=== PATIENT | female | born 1965 | race Caucasian/White ===

== ENCOUNTER 2017-01-14 05:33 | Emergency (ER) | payer MEDICARE ==
[~2017-01-14 05:33] MED LIST: ALDENDRONATE PO; ASPIRIN81 MG PO; COREG 25MG TAB25 MG PO; CYMBALTA60 MG PO; DEXILANT60 MG PO; HYDRALAZINE HCL25 MG PO; METOPROLOL TART50 MG PO; NEURONTIN 400400 MG PO; TRICOR 145 MG145 MG PO
[2017-01-14 07:16] LABS: HEMOGLOBIN 11.2 gm/dl (12.3-15.3); RED BLOOD COUNT 3.72 M/UL (4.00-5.10); WHITE BLOOD COUNT 7.8 K/UL (4.5-11.0)
== END 2017-01-14 12:55 | disposition home or self-care (01) ==
LOC: ER1 05:33
PROVIDERS: Student in an Organized Health Care Education/Training Program
DX: R10.31 Right lower quadrant pain (principal); R10.32 Left lower quadrant pain; I10 Essential (primary) hypertension; E11.9 Type 2 diabetes mellitus without complications; R91.8 Other nonspecific abnormal finding of lung field
CPT/HCPCS: 36415; 72131; 80053; 81001; 83690; 84703; 85025; 87077; 87086; 87186; 96361; 96374; 96375; 99284; J2270; J2405; J7030; J7050; Q9962

== ENCOUNTER 2020-09-13 12:56 | Observation (INO) | payer OTHER ==
[~2020-09-13] VITALS: Ht 167.6 cm; Wt 81.3 kg
[~2020-09-13 12:56] MED LIST changes: +ABILIFY 5 MG TAB5 MG PO; -ALDENDRONATE PO; +ASPIR-LOW81 MG PO; +ASPIRIN EC325 MG PO; -ASPIRIN81 MG PO; +ATORVASTATIN CA20 MG PO; +BASAGLAR K100 UNIT/1 SQ; +BENADRYL 50MG C50 MG PO; +BUSPIRONE HCL15 MG PO; +CATAPRES 0.1MG0.1 MG PO; +COZAAR 50MG TAB50 MG PO; +COZAAR50 MG PO; +EFFEXOR XR37.5 MG PO; +ESTRACE2 MG PO; +FERROUS SULFAT325 M2 PO; +FOSAMAX70 MG PO; +GABAPENTIN300 MG PO; +HUMALOG 10100 UNITS/ SC; +HYDRALAZINE HCL50 MG PO; +HYDROCODON-ACE1 EAC2 PO; +JANUVIA50 MG PO; +LANTUS INS100 UTS/M1 SQ; +LASIX40 MG PO; +LEVAQUIN750 MG PO; +LIPITOR TAB 1010 MG PO; +LISINOPRIL10 MG PO; +LISINOPRIL5 MG PO; +LOPRESSOR 25 MG25 MG PO; +LOPRESSOR 50 MG50 MG PO; +MYCOSTATIN100000 UTS PO; -NEURONTIN 400400 MG PO; +NEURONTIN400 MG PO; +NORCO 10-325 T1 EACH PO; +NOVOLOG FL100 UNIT/1 SQ; +NOVOLOG100 UNIT/1 SQ; +POVIDONE-IOD28.35 GM TP; +PRINIVIL5 MG PO; +VANCOMYCIN HCL125 MG PO; +VITAMIN C 500500 MG PO; +WELCHOL 625 MG625 MG PO; +WELLBUTRIN SR150 MG PO; +ZOFRAN ODT 4 MG4 MG PO; +ZOLOFT100 MG PO
[2020-09-13 15:43] LABS: HEMOGLOBIN 14.5 gm/dl (12.3-15.3); RED BLOOD COUNT 4.92 M/UL (4.00-5.10); WHITE BLOOD COUNT 9.4 K/UL (4.5-11.0)
[2020-09-13] MEDS ORDERED: CATAPRES0.3 MG PO (18:36)
[2020-09-13] MEDS ORDERED: ASPIRIN CHEWABL81 MG PO (18:37)
[2020-09-13] MEDS ORDERED: NORVASC10 MG PO (18:37)
[2020-09-13] MEDS ORDERED: FERROUS SULFAT325 M2 PO (18:38)
[2020-09-13] MEDS ORDERED: COZAAR 50MG TAB50 MG PO ×2 (18:40→18:41)
[2020-09-13] MEDS ORDERED: LOPRESSOR50 MG PO (18:42)
[2020-09-14 01:18] LABS: RED BLOOD COUNT 4.16 M/UL (4.00-5.10)
[2020-09-14 01:19] LABS: HEMOGLOBIN 12.4 gm/dl (12.3-15.3)
--- NOTE | 2020-09-14 12:48 | NUR ---
PT GIVEN HER SCHEDULED BP MED PRIOR TO DISCHARGE
== END 2020-09-14 12:59 | disposition home or self-care (01) ==
LOC: ER1 12:56 → M/S 16:33 → CDU 16:33 → M/S 19:31
PROVIDERS: Emergency Medicine; Physician Assistant Medical; ADMIT Internal Medicine
DX: I16.0 Hypertensive urgency (principal); R07.89 Other chest pain; I12.0 Hypertensive chronic kidney disease with stage 5 chronic kidney disease or end stage renal disease; N18.6 End stage renal disease; E11.22 Type 2 diabetes mellitus with diabetic chronic kidney disease; E78.5 Hyperlipidemia, unspecified; K21.9 Gastro-esophageal reflux disease without esophagitis; F32.9 Major depressive disorder, single episode, unspecified; Z99.2 Dependence on renal dialysis; E11.40 Type 2 diabetes mellitus with diabetic neuropathy, unspecified; Z20.822 Contact with and (suspected) exposure to COVID-19
CPT/HCPCS: 36415; 71045; 80048; 80053; 81001; 82550; 82553; 82962; 83690; 83735; 83874; 83880; 84484; 85025; 85027; 85610; 85730; 87086; 93005; 96374; 99285; G0378; J0360; U0002

== ENCOUNTER → 2020-12-12 | Outpatient (CLI) | payer MEDICARE ==
[~2020-12-12] MED LIST changes: +ASPIRIN CHEWABL81 MG PO; +CATAPRES0.3 MG PO; +LOPRESSOR50 MG PO; +NORVASC10 MG PO
== END ==
LOC: US 14:30
DX: N18.6 End stage renal disease (principal); Z98.890 Other specified postprocedural states
CPT/HCPCS: 93985

== ENCOUNTER 2020-12-26 04:04 | Emergency (ER) | payer OTHER ==
[2020-12-26 06:17] LABS: HEMOGLOBIN 14.7 gm/dl (12.3-15.3); RED BLOOD COUNT 4.78 M/UL (4.00-5.10); WHITE BLOOD COUNT 7.1 K/UL (4.5-11.0)
[2020-12-26] MEDS ORDERED: ZOFRAN ODT 4 MG4 MG PO (12:44)
== END 2020-12-26 13:06 | disposition home or self-care (01) ==
LOC: ER1 04:04
PROVIDERS: Student in an Organized Health Care Education/Training Program
DX: R10.9 Unspecified abdominal pain (principal); R11.0 Nausea; I12.0 Hypertensive chronic kidney disease with stage 5 chronic kidney disease or end stage renal disease; E11.22 Type 2 diabetes mellitus with diabetic chronic kidney disease; N18.6 End stage renal disease; Z79.899 Other long term (current) drug therapy
CPT/HCPCS: 80053; 82550; 82553; 82962; 83605; 83690; 83874; 84484; 85025; 93005; 96374; 96375; 96376; 99284; J2270; J2405

== ENCOUNTER 2021-04-30 15:26 | Emergency (ER) | payer OTHER ==
[2021-04-30 18:41] LABS: HEMOGLOBIN 12.7 gm/dl (12.3-15.3); RED BLOOD COUNT 3.91 M/UL (4.00-5.10); WHITE BLOOD COUNT 9.6 K/UL (4.5-11.0)
== END 2021-04-30 23:30 | disposition home or self-care (01) ==
LOC: ER1 15:26
PROVIDERS: Physician Assistant
DX: S09.90XA Unspecified injury of head, initial encounter (principal); R10.13 Epigastric pain; I12.0 Hypertensive chronic kidney disease with stage 5 chronic kidney disease or end stage renal disease; N18.6 End stage renal disease; E11.22 Type 2 diabetes mellitus with diabetic chronic kidney disease; Z99.2 Dependence on renal dialysis; Z90.49 Acquired absence of other specified parts of digestive tract; W22.8XXA Striking against or struck by other objects, initial encounter
CPT/HCPCS: 70450; 80053; 83690; 85025; 99284

== ENCOUNTER 2021-07-12 14:35 | Observation (INO) | payer OTHER ==
[~2021-07-12] VITALS: Ht 167.6 cm; Wt 63.5 kg
[2021-07-12 14:51] LABS: HEMOGLOBIN 12.4 gm/dl (12.3-15.3); RED BLOOD COUNT 3.8 M/UL (4.00-5.10); WHITE BLOOD COUNT 9.5 K/UL (4.5-11.0)
[2021-07-12] MEDS ORDERED: PHOSLO 667 MG667 MG PO (17:45)
[2021-07-12] MEDS ORDERED: LASIX40 MG PO (17:46)
[2021-07-12] MEDS ORDERED: CLARITIN10 M2 PO (17:47)
[2021-07-12] MEDS ORDERED: BLACK COHOSH540 MG PO (17:48)
[2021-07-12] MEDS ORDERED: SENSIPAR30 MG PO (17:49)
[2021-07-12] MEDS ORDERED: DOXERCALCIFEROL1 MCG PO (17:50)
[2021-07-12] MEDS ORDERED: MIRCERA50 MCG/0.3 INJ (17:51)
[2021-07-13 03:20] LABS: HEMOGLOBIN 11.2 gm/dl (12.3-15.3); RED BLOOD COUNT 3.45 M/UL (4.00-5.10); WHITE BLOOD COUNT 7.6 K/UL (4.5-11.0)
[2021-07-15] MEDS ORDERED: CATAPRES 0.1MG0.1 MG PO (11:08)
[2021-07-15] MEDS ORDERED: BUSPAR 10MG10 MG PO (11:08)
== END 2021-07-15 15:30 | disposition home or self-care (01) ==
LOC: ER1 14:35 → CDU 16:31 → M/S 17:12 → PROG CARE 07-13 01:37
PROVIDERS: Preventive Medicine Occupational Medicine; ADMIT Internal Medicine
DX: R07.89 Other chest pain (principal); R42 Dizziness and giddiness; I44.1 Atrioventricular block, second degree; I13.2 Hypertensive heart and chronic kidney disease with heart failure and with stage 5 chronic kidney disease, or end stage renal disease; E11.22 Type 2 diabetes mellitus with diabetic chronic kidney disease; N18.6 End stage renal disease; I50.30 Unspecified diastolic (congestive) heart failure; I95.9 Hypotension, unspecified; I07.1 Rheumatic tricuspid insufficiency; I27.20 Pulmonary hypertension, unspecified; R77.8 Other specified abnormalities of plasma proteins; R06.00 Dyspnea, unspecified; R55 Syncope and collapse; R00.1 Bradycardia, unspecified; E78.5 Hyperlipidemia, unspecified; K44.9 Diaphragmatic hernia without obstruction or gangrene; K21.9 Gastro-esophageal reflux disease without esophagitis; F32.A Depression, unspecified; Z89.412 Acquired absence of left great toe; Z99.2 Dependence on renal dialysis; Z88.1 Allergy status to other antibiotic agents; Z79.4 Long term (current) use of insulin; Z79.899 Other long term (current) drug therapy; Z20.822 Contact with and (suspected) exposure to COVID-19
CPT/HCPCS: ECHO; 36415; 36600; 71045; 78452; 80048; 80053; 82550; 82553; 82803; 82962; 83690; 83735; 83874; 84439; 84443; 84484; 85025; 85652; 86140; 90935; 93005; 93017; 93306; 94640; 94664; 94760; 99285; A9502; G0378; J2785; U0002

== ENCOUNTER 2021-09-16 17:24 | Emergency (ER) | payer OTHER ==
[~2021-09-16 17:24] MED LIST changes: +BLACK COHOSH540 MG PO; +BUSPAR 10MG10 MG PO; +CLARITIN10 M2 PO; +DOXERCALCIFEROL1 MCG PO; +MIRCERA50 MCG/0.3 INJ; +PHOSLO 667 MG667 MG PO; +SENSIPAR30 MG PO
== END 2021-09-16 18:44 | disposition left against medical advice (07) ==
LOC: ER1 17:24
DX: Z53.21 Procedure and treatment not carried out due to patient leaving prior to being seen by health care provider (principal)

== ENCOUNTER 2021-09-20 19:15 | Emergency (ER) | payer OTHER | END 2021-09-20 22:00 | disposition left against medical advice (07) | LOC: ER1 19:15 | DX: Z53.21 Procedure and treatment not carried out due to patient leaving prior to being seen by health care provider (principal) ==

== ENCOUNTER 2021-09-24 18:00 | Emergency (ER) | payer OTHER ==
[2021-09-24] MEDS ORDERED: SILVADENE20 GM TP (19:30)
== END 2021-09-24 19:49 | disposition home or self-care (01) ==
LOC: ER1 18:00
DX: E11.52 Type 2 diabetes mellitus with diabetic peripheral angiopathy with gangrene (principal); I96 Gangrene, not elsewhere classified; I13.0 Hypertensive heart and chronic kidney disease with heart failure and stage 1 through stage 4 chronic kidney disease, or unspecified chronic kidney disease; E11.22 Type 2 diabetes mellitus with diabetic chronic kidney disease; N18.9 Chronic kidney disease, unspecified; I25.2 Old myocardial infarction; Z99.2 Dependence on renal dialysis
CPT/HCPCS: 12001; 99283

== ENCOUNTER → 2021-09-25 | Outpatient (CLI) | payer OTHER ==
[~2021-09-25] MED LIST changes: +ASPIRIN81 MG PO; +SILVADENE20 GM TP
== END ==
LOC: WCC 08:16
DX: T81.31XA Disruption of external operation (surgical) wound, not elsewhere classified, initial encounter (principal); E10.22 Type 1 diabetes mellitus with diabetic chronic kidney disease; E10.622 Type 1 diabetes mellitus with other skin ulcer; I10 Essential (primary) hypertension; I25.10 Atherosclerotic heart disease of native coronary artery without angina pectoris; E10.51 Type 1 diabetes mellitus with diabetic peripheral angiopathy without gangrene; N18.6 End stage renal disease; Z99.2 Dependence on renal dialysis; Z88.1 Allergy status to other antibiotic agents

== ENCOUNTER → 2021-09-30 | Day surgery (SDC) | payer OTHER ==
[~2021-09-30] VITALS: Ht 167.6 cm; Wt 72.6 kg
[2021-09-30 12:00] LABS: HEMOGLOBIN 11.1 gm/dl (12.3-15.3); RED BLOOD COUNT 3.35 M/UL (4.00-5.10); WHITE BLOOD COUNT 8.9 K/UL (4.5-11.0)
== END | disposition home or self-care (01) ==
LOC: OR 07:30
PROVIDERS: Orthopaedic Surgery
DX: M86.142 Other acute osteomyelitis, left hand (principal); E11.65 Type 2 diabetes mellitus with hyperglycemia; E11.22 Type 2 diabetes mellitus with diabetic chronic kidney disease; I12.0 Hypertensive chronic kidney disease with stage 5 chronic kidney disease or end stage renal disease; N18.6 End stage renal disease; Z90.49 Acquired absence of other specified parts of digestive tract; Z99.2 Dependence on renal dialysis; Z95.828 Presence of other vascular implants and grafts; Z88.1 Allergy status to other antibiotic agents; Z20.822 Contact with and (suspected) exposure to COVID-19
CPT/HCPCS: 36415; 80048; 82962; 83036; 85027; J0690; J1100; J2001; J2250; J2405; J2704; J3010; J7030; J7120; U0002

== ENCOUNTER → 2021-10-02 | Outpatient (CLI) | payer OTHER ==
[~2021-10-02] MED LIST changes: +CEFDINIR300 MG PO
== END | disposition home or self-care (01) ==
LOC: WCC 07:39
DX: T81.31XA Disruption of external operation (surgical) wound, not elsewhere classified, initial encounter (principal); I12.9 Hypertensive chronic kidney disease with stage 1 through stage 4 chronic kidney disease, or unspecified chronic kidney disease; E10.22 Type 1 diabetes mellitus with diabetic chronic kidney disease; N18.9 Chronic kidney disease, unspecified; E10.622 Type 1 diabetes mellitus with other skin ulcer; I25.10 Atherosclerotic heart disease of native coronary artery without angina pectoris; I73.9 Peripheral vascular disease, unspecified; Z99.2 Dependence on renal dialysis; Z95.1 Presence of aortocoronary bypass graft

== ENCOUNTER 2021-10-05 17:19 | Emergency (ER) | payer OTHER ==
[~2021-10-05 17:19] MED LIST changes: -CEFDINIR300 MG PO
[2021-10-05 18:39] LABS: HEMOGLOBIN 10.8 gm/dl (12.3-15.3); RED BLOOD COUNT 3.29 M/UL (4.00-5.10)
== END 2021-10-05 20:33 | disposition home or self-care (01) ==
LOC: ER1 17:19
PROVIDERS: Emergency Medicine
DX: M79.604 Pain in right leg (principal); M79.605 Pain in left leg; E11.9 Type 2 diabetes mellitus without complications; I10 Essential (primary) hypertension; Z95.1 Presence of aortocoronary bypass graft; Z20.822 Contact with and (suspected) exposure to COVID-19
CPT/HCPCS: 0240U; 80048; 83605; 85025; 87040; 96374; 96375; 99283; J2270; J2405

== ENCOUNTER 2021-10-07 14:05 | Observation (INO) | payer OTHER ==
[~2021-10-07] VITALS: Ht 167.6 cm; Wt 77.7 kg
[2021-10-07 15:23] LABS: HEMOGLOBIN 10.6 gm/dl (12.3-15.3); RED BLOOD COUNT 3.22 M/UL (4.00-5.10)
[2021-10-07 15:24] LABS: WHITE BLOOD COUNT 10.9 K/UL (4.5-11.0)
[2021-10-08 03:29] LABS: HEMOGLOBIN 10.4 gm/dl (12.3-15.3); RED BLOOD COUNT 3.13 M/UL (4.00-5.10)
[2021-10-08 03:39] LABS: WHITE BLOOD COUNT 7.7 K/UL (4.5-11.0)
[2021-10-08] MEDS ORDERED: CEFDINIR300 MG PO (16:29)
[2021-10-09 06:26] LABS: HEMOGLOBIN 10.6 gm/dl (12.3-15.3); RED BLOOD COUNT 3.18 M/UL (4.00-5.10)
[2021-10-09 06:28] LABS: WHITE BLOOD COUNT 5.2 K/UL (4.5-11.0)
== END 2021-10-09 13:49 | disposition home or self-care (01) ==
LOC: ER1 14:05 → CDU 17:51 → PROG CARE 17:51 → CDU 19:29 → PROG CARE 21:22
PROVIDERS: Internal Medicine; Physician Assistant Medical; ADMIT Internal Medicine
DX: T81.32XA Disruption of internal operation (surgical) wound, not elsewhere classified, initial encounter (principal); E78.5 Hyperlipidemia, unspecified; I25.10 Atherosclerotic heart disease of native coronary artery without angina pectoris; I12.0 Hypertensive chronic kidney disease with stage 5 chronic kidney disease or end stage renal disease; E11.22 Type 2 diabetes mellitus with diabetic chronic kidney disease; N18.6 End stage renal disease; Z99.2 Dependence on renal dialysis; Z66 Do not resuscitate; I07.1 Rheumatic tricuspid insufficiency; K21.9 Gastro-esophageal reflux disease without esophagitis; F32.A Depression, unspecified; I27.20 Pulmonary hypertension, unspecified; Y83.2 Surgical operation with anastomosis, bypass or graft as the cause of abnormal reaction of the patient, or of later complication, without mention of misadventure at the time of the procedure; Z79.4 Long term (current) use of insulin; Z79.82 Long term (current) use of aspirin; Z88.1 Allergy status to other antibiotic agents; Z95.1 Presence of aortocoronary bypass graft
CPT/HCPCS: ECHO; 36415; 71045; 80048; 80053; 81001; 82550; 82553; 82947; 82962; 83735; 83874; 83880; 84439; 84443; 84484; 85025; 85027; 85610; 85730; 87040; 90935; 93005; 93306; 94664; 94760; 96365; 96375; 96376; 99285; G0378; J1170; J1335; J1644; J2020; J2270; J2405; J2550; P9047

== ENCOUNTER 2021-10-13 17:20 | Inpatient (IN) | payer OTHER ==
[~2021-10-13] VITALS: Ht 167.6 cm; Wt 76.8 kg
[~2021-10-13 17:20] MED LIST changes: +CEFDINIR300 MG PO
[2021-10-13 19:10] LABS: HEMOGLOBIN 11.8 gm/dl (12.3-15.3); RED BLOOD COUNT 3.56 M/UL (4.00-5.10); WHITE BLOOD COUNT 8.9 K/UL (4.5-11.0)
--- NOTE | 2021-10-14 09:38 | NUR ---
PT AND PT DAUGHTER AND DR ORR NOTIFIED OF PT BED OPENING AT [facility] ON . DR ORR STATED IT WAS OK TO D/C [facility] DRIP FOR TIME OF TRANSPORTATION. WILL CALL REPORT TO [facility] AND CALL FOR AM AMBULANCE. PT STABLE AT THIS TIME.
[2021-10-14] MEDS ORDERED: GABAPENTIN300 MG PO (13:21)
[2021-10-14] MEDS ORDERED: HYDROCODON-ACE1 EAC4 PO (13:22)
[2021-10-14] MEDS ORDERED: VENLAFAXINE HCL75 M1 PO (13:22)
[2021-10-14] MEDS ORDERED: LEVOFLOXACIN750 MG PO (13:22)
[2021-10-14] MEDS ORDERED: LIPITOR80 MG PO (13:23)
[2021-10-14] MEDS ORDERED: ASPIRIN EC81 MG PO (13:23)
[2021-10-14] MEDS ORDERED: PHOSLO 667 MG667 MG PO (13:24)
[2021-10-14] MEDS ORDERED: CLOPIDOGREL75 MG PO (13:25)
[2021-10-14] MEDS ORDERED: TOPROL XL25 MG PO (13:25)
--- NOTE | 2021-10-14 17:57 | NUR ---
UNABLE TO TAKE PIC OF PT LEG WOUNDS. PT REFUSED TO ALLOW ME TO REMOVE DRESSINGS STATED THAT ONLY HER WOUND CARE NURSE COULD REMOVE THEM.
[2021-10-15 01:10] LABS: HEMOGLOBIN 11.2 gm/dl (12.3-15.3); RED BLOOD COUNT 3.49 M/UL (4.00-5.10)
[2021-10-16 03:07] LABS: HEMOGLOBIN 10.5 gm/dl (12.3-15.3); RED BLOOD COUNT 3.25 M/UL (4.00-5.10); WHITE BLOOD COUNT 8.7 K/UL (4.5-11.0)
[2021-10-17 03:24] LABS: HEMOGLOBIN 10.8 gm/dl (12.3-15.3); RED BLOOD COUNT 3.32 M/UL (4.00-5.10)
[2021-10-17 03:29] LABS: WHITE BLOOD COUNT 5.5 K/UL (4.5-11.0)
[2021-10-18 09:41] LABS: HEMOGLOBIN 10.3 gm/dl (12.3-15.3); RED BLOOD COUNT 3.14 M/UL (4.00-5.10); WHITE BLOOD COUNT 6.2 K/UL (4.5-11.0)
[2021-10-19 09:05] LABS: HEMOGLOBIN 11.4 gm/dl (12.3-15.3); WHITE BLOOD COUNT 7.7 K/UL (4.5-11.0)
[2021-10-19 09:08] LABS: RED BLOOD COUNT 3.48 M/UL (4.00-5.10)
[2021-10-20 02:14] LABS: HEMOGLOBIN 11.5 gm/dl (12.3-15.3); RED BLOOD COUNT 3.52 M/UL (4.00-5.10); WHITE BLOOD COUNT 9.5 K/UL (4.5-11.0)
[2021-10-21 08:48] LABS: HEMOGLOBIN 10.4 gm/dl (12.3-15.3); RED BLOOD COUNT 3.22 M/UL (4.00-5.10); WHITE BLOOD COUNT 10.7 K/UL (4.5-11.0)
[2021-10-22 06:40] LABS: RED BLOOD COUNT 3.12 M/UL (4.00-5.10); WHITE BLOOD COUNT 9.7 K/UL (4.5-11.0)
[2021-10-23 04:54] LABS: HEMOGLOBIN 9.9 gm/dl (12.3-15.3); RED BLOOD COUNT 3.14 M/UL (4.00-5.10); WHITE BLOOD COUNT 6.2 K/UL (4.5-11.0)
[2021-10-24 04:21] LABS: HEMOGLOBIN 10.1 gm/dl (12.3-15.3); RED BLOOD COUNT 3.15 M/UL (4.00-5.10)
[2021-10-24 04:24] LABS: WHITE BLOOD COUNT 11.6 K/UL (4.5-11.0)
[2021-10-25 07:10] LABS: HEMOGLOBIN 8.7 gm/dl (12.3-15.3)
[2021-10-25 07:14] LABS: RED BLOOD COUNT 2.65 M/UL (4.00-5.10)
[2021-10-26 08:36] LABS: HEMOGLOBIN 8.8 gm/dl (12.3-15.3); RED BLOOD COUNT 2.68 M/UL (4.00-5.10)
[2021-10-26 09:01] LABS: BUN/CREATININE RATIO 5 (0-10)
[2021-10-27 07:13] LABS: HEMOGLOBIN 9.4 gm/dl (12.3-15.3); RED BLOOD COUNT 2.88 M/UL (4.00-5.10); WHITE BLOOD COUNT 10.2 K/UL (4.5-11.0)
[2021-10-27] MEDS ORDERED: HUMALOG 10100 UNITS/ SC (16:23)
[2021-10-27] MEDS ORDERED: PROTONIX40 MG PO (16:23)
[2021-10-27] MEDS ORDERED: MIDODRINE HCL10 MG PO (16:23)
[2021-10-27] MEDS ORDERED: KEFLEX CAP 250250 MG PO ×2 (16:23→17:18)
[2021-10-27] MEDS ORDERED: ZOFRAN 4 MG TAB4 MG PO (16:23)
[2021-10-27] MEDS ORDERED: IPRAT-ALBUT 0.5-3 ML NEB (16:23)
== END 2021-10-27 18:26 | disposition home health service (06) | DRG 853 ==
LOC: ER1 17:20 → MED SURG 4 10-14 00:09 → CDU 10-14 00:09 → PROG CARE 10-14 00:09 → MED SURG 4 10-22 21:25
PROVIDERS: Internal Medicine; Internal Medicine Nephrology; Orthopaedic Surgery; Student in an Organized Health Care Education/Training Program; ADMIT Emergency Medicine
PROC: 5A1D70Z Performance of Urinary Filtration, Intermittent, Less than 6 Hours Per Day (ICD-10-PCS; 2021-10-14)
PROC: 3E03329 Introduction of Other Anti-infective into Peripheral Vein, Percutaneous Approach (ICD-10-PCS; 2021-10-15)
PROC: 5A1D70Z Performance of Urinary Filtration, Intermittent, Less than 6 Hours Per Day (ICD-10-PCS; 2021-10-16)
PROC: 5A0945A Assistance with Respiratory Ventilation, 24-96 Consecutive Hours, High Flow/Velocity Cannula (ICD-10-PCS; 2021-10-16)
PROC: 3E033XZ Introduction of Vasopressor into Peripheral Vein, Percutaneous Approach (ICD-10-PCS; 2021-10-16)
PROC: 5A1D70Z Performance of Urinary Filtration, Intermittent, Less than 6 Hours Per Day (ICD-10-PCS; 2021-10-18)
PROC: 5A1D70Z Performance of Urinary Filtration, Intermittent, Less than 6 Hours Per Day (ICD-10-PCS; 2021-10-22)
PROC: 5A1D70Z Performance of Urinary Filtration, Intermittent, Less than 6 Hours Per Day (ICD-10-PCS; 2021-10-24)
PROC: 0PBV0ZZ Excision of Left Finger Phalanx, Open Approach (ICD-10-PCS; principal; 2021-10-25 12:30)
PROC: 5A1D70Z Performance of Urinary Filtration, Intermittent, Less than 6 Hours Per Day (ICD-10-PCS; 2021-10-26)
DX: A41.9 Sepsis, unspecified organism (principal); N18.6 End stage renal disease; I50.43 Acute on chronic combined systolic (congestive) and diastolic (congestive) heart failure; J18.9 Pneumonia, unspecified organism; J96.21 Acute and chronic respiratory failure with hypoxia; Z20.822 Contact with and (suspected) exposure to COVID-19; J69.0 Pneumonitis due to inhalation of food and vomit; T81.31XA Disruption of external operation (surgical) wound, not elsewhere classified, initial encounter; I13.2 Hypertensive heart and chronic kidney disease with heart failure and with stage 5 chronic kidney disease, or end stage renal disease; E87.1 Hypo-osmolality and hyponatremia; E11.52 Type 2 diabetes mellitus with diabetic peripheral angiopathy with gangrene; I96 Gangrene, not elsewhere classified; D64.9 Anemia, unspecified; E11.40 Type 2 diabetes mellitus with diabetic neuropathy, unspecified; E11.22 Type 2 diabetes mellitus with diabetic chronic kidney disease; E11.43 Type 2 diabetes mellitus with diabetic autonomic (poly)neuropathy; K31.84 Gastroparesis; I27.20 Pulmonary hypertension, unspecified; I95.9 Hypotension, unspecified; R00.0 Tachycardia, unspecified; E87.5 Hyperkalemia; Y83.8 Other surgical procedures as the cause of abnormal reaction of the patient, or of later complication, without mention of misadventure at the time of the procedure; F32.A Depression, unspecified; E78.5 Hyperlipidemia, unspecified; I25.10 Atherosclerotic heart disease of native coronary artery without angina pectoris; K21.9 Gastro-esophageal reflux disease without esophagitis; Z82.49 Family history of ischemic heart disease and other diseases of the circulatory system; Z79.82 Long term (current) use of aspirin; Z95.1 Presence of aortocoronary bypass graft; Z88.1 Allergy status to other antibiotic agents; Z99.2 Dependence on renal dialysis; Z79.4 Long term (current) use of insulin; I25.2 Old myocardial infarction; Z90.49 Acquired absence of other specified parts of digestive tract; Z99.81 Dependence on supplemental oxygen
CPT/HCPCS: 0241U; 36415; 36600; 71045; 80048; 80053; 82550; 82553; 82728; 82803; 82962; 83540; 83550; 83605; 83735; 83880; 84100; 84484; 85025; 85027; 85652; 86140; 87040; 90937; 93005; 94640; 94660; 94664; 94760; 96374; 99285; C9113; G0257; J0690; J1100; J1644; J2020; J2185; J2250; J2370; J2405; J2704; J7030; J7120; P9047; U0002

== ENCOUNTER 2021-11-04 07:24 | Inpatient (IN) | payer OTHER ==
[~2021-11-04] VITALS: Ht 167.6 cm; Wt 68.5 kg
[~2021-11-04 07:24] MED LIST changes: +ASPIRIN EC81 MG PO; +CLOPIDOGREL75 MG PO; +HYDROCODON-ACE1 EAC4 PO; +IPRAT-ALBUT 0.5-3 ML NEB; +KEFLEX CAP 250250 MG PO; +LEVOFLOXACIN750 MG PO; +LIPITOR80 MG PO; +MIDODRINE HCL10 MG PO; +PROTONIX40 MG PO; +TOPROL XL25 MG PO; +VENLAFAXINE HCL75 M1 PO; +ZOFRAN 4 MG TAB4 MG PO
[2021-11-04 07:54] LABS: HEMOGLOBIN 8.4 gm/dl (12.3-15.3); RED BLOOD COUNT 2.65 M/UL (4.00-5.10); WHITE BLOOD COUNT 9.6 K/UL (4.5-11.0)
[2021-11-04] MEDS ORDERED: LOSARTAN POTASS25 MG PO (10:34)
[2021-11-05 03:08] LABS: RED BLOOD COUNT 2.46 M/UL (4.00-5.10); WHITE BLOOD COUNT 8.4 K/UL (4.5-11.0)
[2021-11-06 06:47] LABS: HEMOGLOBIN 8.4 gm/dl (12.3-15.3); RED BLOOD COUNT 2.7 M/UL (4.00-5.10); WHITE BLOOD COUNT 8.9 K/UL (4.5-11.0)
[2021-11-07 05:05] LABS: HEMOGLOBIN 8.9 gm/dl (12.3-15.3); RED BLOOD COUNT 2.76 M/UL (4.00-5.10); WHITE BLOOD COUNT 10.6 K/UL (4.5-11.0)
--- NOTE | 2021-11-07 07:40 | NUR ---
PT NOTED TO BE EATING POTATO CHIPS BROUGHT FROM HOME AND EDUCATED PT THAT RENAL DIET DOES NOT ALLOW CHIPS IT RAISES K+ LEVELS SINCE PT IS ON DIALYSIS WITH VOICED UNDERSTANDING AND PT STATES SHE DOES NOT CARE, SHE WILL EAT WHAT SHE WANTS. MD AND OB/GYN PHYSICIAN NOTIFIED
[2021-11-07 18:05] LABS: BODY FLUID SOURCE PLEURAL
[2021-11-07 18:06] LABS: MONONUCLEAR CELLS 89 (75-100); POLYMORPHONUCLEAR % 11 (0-25); RBC (AUTOMATED) 700 (0-100000); WBC (AUTOMATED) 179 (0-500)
[2021-11-07 19:11] LABS: AMYLASE, BODY FLUID 23 U/L; LDH, BODY FLUID 120 U/L
[2021-11-08 04:24] LABS: HEMOGLOBIN 9.4 gm/dl (12.3-15.3); RED BLOOD COUNT 2.94 M/UL (4.00-5.10); WHITE BLOOD COUNT 13.1 K/UL (4.5-11.0)
[2021-11-09 03:32] LABS: HEMOGLOBIN 9.5 gm/dl (12.3-15.3); RED BLOOD COUNT 3.01 M/UL (4.00-5.10); WHITE BLOOD COUNT 13.8 K/UL (4.5-11.0)
--- NOTE | 2021-11-09 09:43 | NUR ---
PATIENT ASKED FOR MARCO A TO WRAP HER FINGER, GAVE IT TO HER.
[2021-11-10 06:16] LABS: HEMOGLOBIN 10.1 gm/dl (12.3-15.3); RED BLOOD COUNT 3.12 M/UL (4.00-5.10)
[2021-11-10 06:18] LABS: WHITE BLOOD COUNT 8.4 K/UL (4.5-11.0)
--- NOTE | 2021-11-10 13:10 | NUR ---
CASE MANAGEMENT WILL FOLLOW-UP ON THURSDAY REGARDING PATIENT TRANSPORT TO DIALYSIS, ADIEL CONFIRMED.
[2021-11-11 03:30] LABS: HEMOGLOBIN 8.9 gm/dl (12.3-15.3); RED BLOOD COUNT 2.85 M/UL (4.00-5.10); WHITE BLOOD COUNT 10.1 K/UL (4.5-11.0)
--- NOTE | 2021-11-11 13:47 | NUR ---
PATIENT HAD HYPO GLYCEMIC EVENT. BLOOD GLUCOSE WAS DISCOVERED ON REGULAR NOON CHECK TO BE 56. ONE AMP D50 WAS ATTEMPTED TO BE PUSHED, BUT PATIENTS IV HAD INFILTRATED. PO GLUCOSE GEL WAS PULLED AND PATIENT TOOK SMALL AMOUNT AND REFUSED THE REST. STATING "IT'S NASTY" AND REFUSED TO TAKE ANY MORE. PATIENT WAS PROVIDED WITH APPLE JUICE AND APPLE SAUCE. HER LUNCH ARRIVED DURING THIS TIME AND SHE WAS ADVISED TO EAT MUCH OF HER LUNCH SHE COULD. THE IV IN QUESTION WAS TAKEN OUT AND A WARM COMPRESS PLACED ON SIGHT. 3 CALLS HAVE BEEN MADE TO TRY TO GET THE PATIENT A NEW IV, TO NO AVAILE. NO ONE IS AVAILABLE TO PLACE AN ULTRA SOUND GUIDED IV AND NO OTHER CAN BE OBTAINED. PROVIDER IS AWARE PATIENT CURRENTLY HAS NO IV. BLOOD GLUCOSE RECHECKED AND PATIENT HAD BLOOD GLUCOSE OF 131. SHE WAS PROVIDED WITH PEANUT BUTTER AND CRACKERS TO FURTHER BOLSTER HER BLOOD GLUCOSE SINCE SHE HAS NO IV. WILL CONTINUE TO GAIN IV ACCESS FOR PATIENT. WILL CONTINUE TO MONITOR.
[2021-11-12 11:16] LABS: HEMOGLOBIN 9.2 gm/dl (12.3-15.3); RED BLOOD COUNT 2.89 M/UL (4.00-5.10); WHITE BLOOD COUNT 12.3 K/UL (4.5-11.0)
[2021-11-13 06:37] LABS: HEMOGLOBIN 9.1 gm/dl (12.3-15.3); RED BLOOD COUNT 2.89 M/UL (4.00-5.10)
[2021-11-13 06:49] LABS: WHITE BLOOD COUNT 6.8 K/UL (4.5-11.0)
[2021-11-14 06:08] LABS: HEMOGLOBIN 8.5 gm/dl (12.3-15.3); RED BLOOD COUNT 2.73 M/UL (4.00-5.10); WHITE BLOOD COUNT 7.3 K/UL (4.5-11.0)
[2021-11-15 06:59] LABS: HEMOGLOBIN 9.9 gm/dl (12.3-15.3); WHITE BLOOD COUNT 7.2 K/UL (4.5-11.0)
[2021-11-15 07:00] LABS: RED BLOOD COUNT 3.11 M/UL (4.00-5.10)
== END 2021-11-15 16:00 | disposition home health service (06) | DRG 291 ==
LOC: ER1 07:24 → MED SURG 4 09:56 → CDU 09:56 → PROG CARE 09:56 → MED SURG 4 11-08 20:08
PROVIDERS: Emergency Medicine; Family Medicine; Internal Medicine; Internal Medicine Nephrology; Physician Assistant; ADMIT Internal Medicine
PROC: 3E03329 Introduction of Other Anti-infective into Peripheral Vein, Percutaneous Approach (ICD-10-PCS; principal; 2021-11-04)
PROC: 5A1D70Z Performance of Urinary Filtration, Intermittent, Less than 6 Hours Per Day (ICD-10-PCS; 2021-11-04)
PROC: 5A1D70Z Performance of Urinary Filtration, Intermittent, Less than 6 Hours Per Day (ICD-10-PCS; 2021-11-06)
PROC: 5A1D70Z Performance of Urinary Filtration, Intermittent, Less than 6 Hours Per Day (ICD-10-PCS; 2021-11-07)
PROC: 5A1D70Z Performance of Urinary Filtration, Intermittent, Less than 6 Hours Per Day (ICD-10-PCS; 2021-11-09)
PROC: 0W993ZZ Drainage of Right Pleural Cavity, Percutaneous Approach (ICD-10-PCS; 2021-11-12)
PROC: 5A1D70Z Performance of Urinary Filtration, Intermittent, Less than 6 Hours Per Day (ICD-10-PCS; 2021-11-12)
PROC: 5A1D70Z Performance of Urinary Filtration, Intermittent, Less than 6 Hours Per Day (ICD-10-PCS; 2021-11-14)
DX: I13.2 Hypertensive heart and chronic kidney disease with heart failure and with stage 5 chronic kidney disease, or end stage renal disease (principal); N18.6 End stage renal disease; J18.9 Pneumonia, unspecified organism; I50.23 Acute on chronic systolic (congestive) heart failure; J96.01 Acute respiratory failure with hypoxia; E87.2 Acidosis; J98.11 Atelectasis; Z20.822 Contact with and (suspected) exposure to COVID-19; E87.5 Hyperkalemia; E11.22 Type 2 diabetes mellitus with diabetic chronic kidney disease; I25.10 Atherosclerotic heart disease of native coronary artery without angina pectoris; E78.5 Hyperlipidemia, unspecified; Z66 Do not resuscitate; I36.1 Nonrheumatic tricuspid (valve) insufficiency; I27.20 Pulmonary hypertension, unspecified; F32.A Depression, unspecified; R53.81 Other malaise; K21.9 Gastro-esophageal reflux disease without esophagitis; D63.1 Anemia in chronic kidney disease; D53.9 Nutritional anemia, unspecified; G72.9 Myopathy, unspecified; E11.649 Type 2 diabetes mellitus with hypoglycemia without coma; T87.81 Dehiscence of amputation stump; Z79.899 Other long term (current) drug therapy; Z95.1 Presence of aortocoronary bypass graft; Z99.2 Dependence on renal dialysis; Z89.022 Acquired absence of left finger(s); Z98.890 Other specified postprocedural states; Z88.1 Allergy status to other antibiotic agents; Z82.3 Family history of stroke; Z83.3 Family history of diabetes mellitus; Z90.49 Acquired absence of other specified parts of digestive tract; Z79.4 Long term (current) use of insulin; Z91.14 Patient's other noncompliance with medication regimen; Z79.82 Long term (current) use of aspirin
CPT/HCPCS: 36415; 36600; 71045; 80048; 80053; 82150; 82550; 82553; 82607; 82728; 82746; 82803; 82945; 82962; 83540; 83550; 83605; 83615; 83735; 83880; 83986; 84132; 84157; 84484; 85025; 85027; 85049; 85610; 85730; 87040; 87070; 87205; 89051; 90937; 93005; 94640; 94664; 94760; 96374; 96375; 97116; 97116-GP-CQ; 97161; 97166; 97530-GP-CQ; 99285; C1729; J1644; J2185; Q5105; U0002

== ENCOUNTER → 2021-12-20 | Day surgery (SDC) | payer OTHER ==
[~2021-12-20] MED LIST changes: +BACTRIM DS TAB1 EACH PO; +LOSARTAN POTASS25 MG PO; +MIDODRINE HCL2.5 MG PO
[2021-12-20 08:18] LABS: HEMOGLOBIN 9.2 gm/dl (12.3-15.3); RED BLOOD COUNT 2.82 M/UL (4.00-5.10)
== END | disposition home or self-care (01) ==
LOC: OR 07:27
PROVIDERS: Orthopaedic Surgery
DX: E11.69 Type 2 diabetes mellitus with other specified complication (principal); M86.142 Other acute osteomyelitis, left hand; I96 Gangrene, not elsewhere classified; T81.31XA Disruption of external operation (surgical) wound, not elsewhere classified, initial encounter; I12.0 Hypertensive chronic kidney disease with stage 5 chronic kidney disease or end stage renal disease; E11.22 Type 2 diabetes mellitus with diabetic chronic kidney disease; N18.6 End stage renal disease; E11.65 Type 2 diabetes mellitus with hyperglycemia; Z88.1 Allergy status to other antibiotic agents; Z79.02 Long term (current) use of antithrombotics/antiplatelets; Z79.4 Long term (current) use of insulin; Z79.899 Other long term (current) drug therapy; Z20.822 Contact with and (suspected) exposure to COVID-19
CPT/HCPCS: 36415; 80048; 82962; 85025; J0690; J1100; J2001; J2405; J2704; J3010; J7040; J7120; U0002

== ENCOUNTER → 2022-01-01 | Outpatient (CLI) | payer OTHER | END | disposition home or self-care (01) | LOC: WCC 07:31 | DX: E10.621 Type 1 diabetes mellitus with foot ulcer (principal); L97.528 Non-pressure chronic ulcer of other part of left foot with other specified severity; L97.522 Non-pressure chronic ulcer of other part of left foot with fat layer exposed; L97.512 Non-pressure chronic ulcer of other part of right foot with fat layer exposed; T81.31XA Disruption of external operation (surgical) wound, not elsewhere classified, initial encounter; L97.428 Non-pressure chronic ulcer of left heel and midfoot with other specified severity; E10.51 Type 1 diabetes mellitus with diabetic peripheral angiopathy without gangrene; I13.0 Hypertensive heart and chronic kidney disease with heart failure and stage 1 through stage 4 chronic kidney disease, or unspecified chronic kidney disease; E10.22 Type 1 diabetes mellitus with diabetic chronic kidney disease; N18.9 Chronic kidney disease, unspecified; I50.9 Heart failure, unspecified; Z99.2 Dependence on renal dialysis; Z88.1 Allergy status to other antibiotic agents ==

== ENCOUNTER → 2022-01-15 | Outpatient (CLI) | payer OTHER | END | disposition home or self-care (01) | LOC: WCC 08:29 | DX: E10.621 Type 1 diabetes mellitus with foot ulcer (principal); L97.528 Non-pressure chronic ulcer of other part of left foot with other specified severity; T81.31XA Disruption of external operation (surgical) wound, not elsewhere classified, initial encounter; I13.0 Hypertensive heart and chronic kidney disease with heart failure and stage 1 through stage 4 chronic kidney disease, or unspecified chronic kidney disease; E10.22 Type 1 diabetes mellitus with diabetic chronic kidney disease; N18.9 Chronic kidney disease, unspecified; I50.9 Heart failure, unspecified; E10.51 Type 1 diabetes mellitus with diabetic peripheral angiopathy without gangrene; I25.10 Atherosclerotic heart disease of native coronary artery without angina pectoris; Z99.2 Dependence on renal dialysis; Z79.899 Other long term (current) drug therapy | CPT/HCPCS: 97597 ==

== ENCOUNTER 2022-01-22 14:55 | Inpatient (IN) | payer OTHER ==
[~2022-01-22] VITALS: Ht 160 cm; Wt 72.6 kg
[~2022-01-22 14:55] MED LIST changes: -ATORVASTATIN CA80 MG PO; -IPRAT-ALBUT 0.5-3 ML INH; -ONDANSETRON HCL4 MG PO
[2022-01-22 16:05] LABS: HEMOGLOBIN 10.3 gm/dl (12.3-15.3); RED BLOOD COUNT 3.19 M/UL (4.00-5.10); WHITE BLOOD COUNT 25.3 K/UL (4.5-11.0)
[2022-01-23 04:04] LABS: HEMOGLOBIN 9.5 gm/dl (12.3-15.3); RED BLOOD COUNT 2.99 M/UL (4.00-5.10)
[2022-01-23 04:05] LABS: WHITE BLOOD COUNT 14.7 K/UL (4.5-11.0)
[2022-01-23] MEDS ORDERED: MIDODRINE HCL10 MG PO (11:18)
[2022-01-23] MEDS ORDERED: IPRAT-ALBUT 0.5-3 ML INH (11:18)
[2022-01-23] MEDS ORDERED: ONDANSETRON HCL4 MG PO (11:19)
[2022-01-23] MEDS ORDERED: ATORVASTATIN CA80 MG PO (11:19)
[2022-01-24 08:35] LABS: RED BLOOD COUNT 3.14 M/UL (4.00-5.10); WHITE BLOOD COUNT 12.1 K/UL (4.5-11.0)
[2022-01-25 07:12] LABS: RED BLOOD COUNT 3.24 M/UL (4.00-5.10)
[2022-01-25 07:13] LABS: WHITE BLOOD COUNT 19.7 K/UL (4.5-11.0)
[2022-01-26 08:01] LABS: HEMOGLOBIN 10.6 gm/dl (12.3-15.3); RED BLOOD COUNT 3.3 M/UL (4.00-5.10); WHITE BLOOD COUNT 15.7 K/UL (4.5-11.0)
[2022-01-27 08:04] LABS: HEMOGLOBIN 11.5 gm/dl (12.3-15.3); RED BLOOD COUNT 3.6 M/UL (4.00-5.10); WHITE BLOOD COUNT 19.5 K/UL (4.5-11.0)
[2022-01-28 08:43] LABS: HEMOGLOBIN 11.6 gm/dl (12.3-15.3); RED BLOOD COUNT 3.69 M/UL (4.00-5.10); WHITE BLOOD COUNT 18.7 K/UL (4.5-11.0)
[2022-01-29 05:20] LABS: HEMOGLOBIN 10.2 gm/dl (12.3-15.3); WHITE BLOOD COUNT 15.7 K/UL (4.5-11.0)
[2022-01-29 05:23] LABS: RED BLOOD COUNT 3.27 M/UL (4.00-5.10)
[2022-01-30 05:47] LABS: HEMOGLOBIN 9.9 gm/dl (12.3-15.3); RED BLOOD COUNT 3.11 M/UL (4.00-5.10); WHITE BLOOD COUNT 18.8 K/UL (4.5-11.0)
[2022-01-31 06:04] LABS: HEMOGLOBIN 9.9 gm/dl (12.3-15.3); RED BLOOD COUNT 3.09 M/UL (4.00-5.10); WHITE BLOOD COUNT 14.9 K/UL (4.5-11.0)
[2022-01-31 12:12] LABS: HBSAG SCREEN Negative (Negative); HCV AB 0.1 (0.0-0.9); HEP A AB, IGM Negative (Negative); HEP B CORE AB, IGM Negative (Negative)
[2022-02-01 05:23] LABS: HEMOGLOBIN 10.6 gm/dl (12.3-15.3); RED BLOOD COUNT 3.29 M/UL (4.00-5.10)
[2022-02-02 06:05] LABS: HEMOGLOBIN 9.8 gm/dl (12.3-15.3); RED BLOOD COUNT 3.09 M/UL (4.00-5.10); WHITE BLOOD COUNT 12.8 K/UL (4.5-11.0)
[2022-02-03 05:15] LABS: HEMOGLOBIN 9.4 gm/dl (12.3-15.3); RED BLOOD COUNT 2.9 M/UL (4.00-5.10); WHITE BLOOD COUNT 14.3 K/UL (4.5-11.0)
[2022-02-04 05:14] LABS: HEMOGLOBIN 8.9 gm/dl (12.3-15.3); RED BLOOD COUNT 2.76 M/UL (4.00-5.10)
[2022-02-04 05:19] LABS: WHITE BLOOD COUNT 18.5 K/UL (4.5-11.0)
[2022-02-05 06:10] LABS: HEMOGLOBIN 9.8 gm/dl (12.3-15.3)
[2022-02-05 06:12] LABS: WHITE BLOOD COUNT 12.6 K/UL (4.5-11.0)
[2022-02-06 05:42] LABS: HEMOGLOBIN 10.2 gm/dl (12.3-15.3); RED BLOOD COUNT 3.18 M/UL (4.00-5.10)
[2022-02-08 05:01] LABS: HEMOGLOBIN 9.2 gm/dl (12.3-15.3); RED BLOOD COUNT 2.9 M/UL (4.00-5.10)
[2022-02-08 05:08] LABS: WHITE BLOOD COUNT 14.4 K/UL (4.5-11.0)
[2022-02-09 05:01] LABS: HEMOGLOBIN 9.6 gm/dl (12.3-15.3); RED BLOOD COUNT 2.99 M/UL (4.00-5.10)
[2022-02-09 05:03] LABS: WHITE BLOOD COUNT 21.8 K/UL (4.5-11.0)
[2022-02-10 05:06] LABS: HEMOGLOBIN 9.4 gm/dl (12.3-15.3); RED BLOOD COUNT 2.91 M/UL (4.00-5.10); WHITE BLOOD COUNT 26.4 K/UL (4.5-11.0)
[2022-02-11 05:21] LABS: RED BLOOD COUNT 3.11 M/UL (4.00-5.10); WHITE BLOOD COUNT 26.2 K/UL (4.5-11.0)
--- NOTE | 2022-02-11 17:17 | NUR ---
BLOOD SUGAR AT RECHECK WAS 191
[2022-02-12 06:42] LABS: HEMOGLOBIN 9.8 gm/dl (12.3-15.3); RED BLOOD COUNT 3.02 M/UL (4.00-5.10); WHITE BLOOD COUNT 19.8 K/UL (4.5-11.0)
[2022-02-13 05:13] LABS: HEMOGLOBIN 8.7 gm/dl (12.3-15.3)
[2022-02-13 05:17] LABS: RED BLOOD COUNT 2.69 M/UL (4.00-5.10); WHITE BLOOD COUNT 12.3 K/UL (4.5-11.0)
[2022-02-14 06:08] LABS: HEMOGLOBIN 8.6 gm/dl (12.3-15.3); RED BLOOD COUNT 2.61 M/UL (4.00-5.10); WHITE BLOOD COUNT 12.5 K/UL (4.5-11.0)
[2022-02-16 09:38] LABS: HEMOGLOBIN 8.1 gm/dl (12.3-15.3); RED BLOOD COUNT 2.46 M/UL (4.00-5.10); WHITE BLOOD COUNT 13.6 K/UL (4.5-11.0)
[2022-02-16 09:40] LABS: HEMOGLOBIN 7.9 gm/dl (12.3-15.3); RED BLOOD COUNT 2.42 M/UL (4.00-5.10)
--- NOTE | 2022-02-16 18:34 | NUR ---
1834 Blood Glucose 157.
[2022-02-17 07:27] LABS: HEMOGLOBIN 9.9 gm/dl (12.3-15.3)
[2022-02-17 07:28] LABS: RED BLOOD COUNT 3.05 M/UL (4.00-5.10)
--- NOTE | 2022-02-17 13:59 | NUR ---
DC PTS NG DUE TO CLOGGING AT 1245, PLACED A NEW ONE PER DR. MURRAY AT 1320
--- NOTE | 2022-02-17 14:40 | NUR ---
REMOVED 4 STITCHES FROM PTS LEFT PINKY FINGER.
[2022-02-18 06:46] LABS: HEMOGLOBIN 9.6 gm/dl (12.3-15.3); RED BLOOD COUNT 2.93 M/UL (4.00-5.10); WHITE BLOOD COUNT 12.6 K/UL (4.5-11.0)
--- NOTE | 2022-02-19 06:27 | NUR ---
PT WAS LAYING IN BED WITH AT BEDSIDE. WAS NONRESPONSIVE, LIMP, OTHER HEAD LOFT WORKER WENT TO CHECK MONTIOR, ATTEMPTED TO CHECK VITALS. PT 2040 TWO HEAD LOFT WORKER NURSE CONFIRMED. GLUING MACHINE OPERATOR ASSISTED IN NOTIFYING MD AND NOTIFYING THE [facility] AT REQUEST. [address] WAS NOTIFIED SPOKE WITH WILL SLIM [id number]. APPROX 2219 HOME IS ON FLOOR TO RECIEVED PT.
== END 2022-02-18 23:11 | disposition expired | DRG 853 ==
LOC: ER1 14:55 → CDU 18:14 → MED SURG 4 18:14 → CCU 18:14 → MED SURG 4 02-15 09:51
PROVIDERS: Internal Medicine; Internal Medicine Critical Care Medicine; Internal Medicine Nephrology; Internal Medicine Pulmonary Disease; Physician Assistant Medical; Surgery; ADMIT Internal Medicine
PROC: 3E03329 Introduction of Other Anti-infective into Peripheral Vein, Percutaneous Approach (ICD-10-PCS; 2022-01-22)
PROC: 02HV33Z Insertion of Infusion Device into Superior Vena Cava, Percutaneous Approach (ICD-10-PCS; 2022-01-22)
PROC: B548ZZA Ultrasonography of Superior Vena Cava, Guidance (ICD-10-PCS; 2022-01-22)
PROC: 0BH17EZ Insertion of Endotracheal Airway into Trachea, Via Natural or Artificial Opening (ICD-10-PCS; 2022-01-22)
PROC: 5A1955Z Respiratory Ventilation, Greater than 96 Consecutive Hours (ICD-10-PCS; 2022-01-22)
PROC: 0Y6J0Z3 Detachment at Left Lower Leg, Low, Open Approach (ICD-10-PCS; 2022-01-22)
PROC: 3E043XZ Introduction of Vasopressor into Central Vein, Percutaneous Approach (ICD-10-PCS; principal; 2022-01-22 20:39)
PROC: 5A1D70Z Performance of Urinary Filtration, Intermittent, Less than 6 Hours Per Day (ICD-10-PCS; 2022-01-23)
PROC: 0QBH0ZZ Excision of Left Tibia, Open Approach (ICD-10-PCS; 2022-01-25)
PROC: 5A1D70Z Performance of Urinary Filtration, Intermittent, Less than 6 Hours Per Day (ICD-10-PCS; 2022-01-28)
PROC: 5A09357 Assistance with Respiratory Ventilation, Less than 24 Consecutive Hours, Continuous Positive Airway Pressure (ICD-10-PCS; 2022-01-30)
PROC: 5A1D70Z Performance of Urinary Filtration, Intermittent, Less than 6 Hours Per Day (ICD-10-PCS; 2022-01-30)
PROC: 5A1D70Z Performance of Urinary Filtration, Intermittent, Less than 6 Hours Per Day (ICD-10-PCS; 2022-02-01)
PROC: 5A09357 Assistance with Respiratory Ventilation, Less than 24 Consecutive Hours, Continuous Positive Airway Pressure (ICD-10-PCS; 2022-02-05)
PROC: 5A09357 Assistance with Respiratory Ventilation, Less than 24 Consecutive Hours, Continuous Positive Airway Pressure (ICD-10-PCS; 2022-02-07)
PROC: 5A09357 Assistance with Respiratory Ventilation, Less than 24 Consecutive Hours, Continuous Positive Airway Pressure (ICD-10-PCS; 2022-02-09)
PROC: 5A1D70Z Performance of Urinary Filtration, Intermittent, Less than 6 Hours Per Day (ICD-10-PCS; 2022-02-14)
DX: A41.9 Sepsis, unspecified organism (principal); J80 Acute respiratory distress syndrome; Z20.822 Contact with and (suspected) exposure to COVID-19; J18.9 Pneumonia, unspecified organism; Z66 Do not resuscitate; R65.21 Severe sepsis with septic shock; N18.6 End stage renal disease; I50.43 Acute on chronic combined systolic (congestive) and diastolic (congestive) heart failure; G93.41 Metabolic encephalopathy; E11.52 Type 2 diabetes mellitus with diabetic peripheral angiopathy with gangrene; I12.0 Hypertensive chronic kidney disease with stage 5 chronic kidney disease or end stage renal disease; J90 Pleural effusion, not elsewhere classified; J44.0 Chronic obstructive pulmonary disease with (acute) lower respiratory infection; I13.2 Hypertensive heart and chronic kidney disease with heart failure and with stage 5 chronic kidney disease, or end stage renal disease; E87.1 Hypo-osmolality and hyponatremia; E87.2 Acidosis; D62 Acute posthemorrhagic anemia; E11.22 Type 2 diabetes mellitus with diabetic chronic kidney disease; E11.65 Type 2 diabetes mellitus with hyperglycemia; E78.5 Hyperlipidemia, unspecified; E11.649 Type 2 diabetes mellitus with hypoglycemia without coma; K21.9 Gastro-esophageal reflux disease without esophagitis; R53.81 Other malaise; I27.20 Pulmonary hypertension, unspecified; F32.A Depression, unspecified; I25.10 Atherosclerotic heart disease of native coronary artery without angina pectoris; L89.152 Pressure ulcer of sacral region, stage 2; L89.322 Pressure ulcer of left buttock, stage 2; L89.312 Pressure ulcer of right buttock, stage 2; I07.1 Rheumatic tricuspid insufficiency; D63.1 Anemia in chronic kidney disease; R13.10 Dysphagia, unspecified; E78.00 Pure hypercholesterolemia, unspecified; I95.89 Other hypotension; F41.9 Anxiety disorder, unspecified; E83.39 Other disorders of phosphorus metabolism; Z79.4 Long term (current) use of insulin; Z99.2 Dependence on renal dialysis; Z91.14 Patient's other noncompliance with medication regimen; Z95.1 Presence of aortocoronary bypass graft; Z90.49 Acquired absence of other specified parts of digestive tract; Z83.3 Family history of diabetes mellitus; Z82.49 Family history of ischemic heart disease and other diseases of the circulatory system; Z88.1 Allergy status to other antibiotic agents; Z82.3 Family history of stroke; Z89.422 Acquired absence of other left toe(s); I25.2 Old myocardial infarction; Z86.73 Personal history of transient ischemic attack (TIA), and cerebral infarction without residual deficits; Z99.81 Dependence on supplemental oxygen
CPT/HCPCS: 36415; 36600; 70450; 71045; 73620; 74018; 74230; 80048; 80053; 80074; 81001; 82533; 82803; 82962; 83605; 83735; 83880; 84100; 85025; 85027; 85652; 86140; 87040; 87070; 87205; 90935; 90937; 92526; 92610; 92611-GN; 93005; 93925; 94002; 94003; 94640; 94660; 94664; 94760; 96361; 96365; 96375; 97110; 97110-GP-CQ; 97161; 97167; 97530; 97530-GP-CQ; 97535; 99285; A6212; C9113; J0330; J0360; J0692; J1100; J1630; J1644; J2001; J2020; J2270; J2405; J2543; J2704; J3010; J3486; J7030; J7040; J7120; P9047; U0002

== ENCOUNTER → 2022-01-22 | Outpatient (CLI) | payer OTHER ==
[~2022-01-22] MED LIST changes: +ATORVASTATIN CA80 MG PO; +IPRAT-ALBUT 0.5-3 ML INH; +ONDANSETRON HCL4 MG PO
== END ==
LOC: WCC 07:16
DX: T81.31XD Disruption of external operation (surgical) wound, not elsewhere classified, subsequent encounter (principal); E10.621 Type 1 diabetes mellitus with foot ulcer; E10.22 Type 1 diabetes mellitus with diabetic chronic kidney disease; I13.0 Hypertensive heart and chronic kidney disease with heart failure and stage 1 through stage 4 chronic kidney disease, or unspecified chronic kidney disease; N18.6 End stage renal disease; I25.10 Atherosclerotic heart disease of native coronary artery without angina pectoris; Z99.2 Dependence on renal dialysis; I50.9 Heart failure, unspecified; I73.9 Peripheral vascular disease, unspecified
CPT/HCPCS: G0463